=== PATIENT | female | born 1960 | race Caucasian/White ===

== ENCOUNTER → 2016-09-22 13:37 | Emergency (ER) | payer BC, OTHER ==
[~2016-09-22 13:37] MED LIST: Famotidine IV* 10 MG/ML 2 ML (20 mg) IV ONE; methylPREDNISolone 125 MG* 2 ML VIAL IV ONE
--- NOTE | 2016-09-22 18:14 | ED ---
Shiva Macdonald Angela, scribed for Cesar Campbell MD on 09/22/16 at 1601 . Allergic Reaction/Systemic - HPI Summary HPI Summary: 56 y/o female presents to the ED c/o allergic reaction s/p allergy shots today at 8:30 AM. Pt reports that 1 hour after her shots she began to experience an itchy mouth (including tongue and lips), throat, neck, and pruritic rashes on her arms. She notes taking 2 benadryl with no relief, pt states she still feels "prickly" all over. Pt denies SOB or throat tightening. She notes she is allergic to a lot of things, including cats, dogs. - History of Current Complaint Chief Complaint: EDAllergicReaction Time Seen by Provider: 09/22/16 15:40 Hx Obtained From: Patient Onset/Duration: Sudden Onset Timing: Constant Pain Intensity: 0 Location: Diffuse Character: Pruritus Aggravating Factor(s): Nothing Alleviating Factor(s): Nothing Associated Signs And Symptoms: Positive: Rash. Negative: Difficulty Breathing, Nausea, Throat Tightening - Allergies/Home Medications Allergies/Adverse Reactions: Allergies Allergy/AdvReac Type Severity Reaction Status Date / Time No Known Allergies Allergy Verified 09/22/16 13:47 PMH/Surg Hx/FS Hx/Imm Hx - Cancer History Hx Chemotherapy: No Hx Radiation Therapy: Yes - INFINANT ON LOWER LIP Infectious Disease History: No Infectious Disease History: Denies: Traveled Outside the [place] in Last 30 Days Review of Systems Positive: Other - Itchiness in her arms, neck, mouth. . Negative: Fever Positive: Other - NEGATIVE: throat tightening Negative: Shortness Of Breath All Other Systems Reviewed And Are Negative: Yes Physical Exam - Summary Physical Exam Summary: General: well-appearing, no pain distress Skin: warm, color reflects adequate perfusion, dry. Mild diffuse rash on her arms. Head: normal Eyes: EOMI, VIOLETA ENT: normal Neck: supple, nontender Respiratory: CTA, breath sounds present. Airways are open. Cardiovascular: RRR Abdomen: soft, nontender Bowel: present Musculoskeletal: normal, strength/ROM intact Neurological: normal, sensory/motor intact, A&O x3 Psychological: affect/mood appropriate Triage Information Reviewed: Yes Vital Signs On Initial Exam: Initial Vitals Temp Pulse Resp BP Pulse Ox 97.8 F 85 16 119/68 98 09/22/16 13:45 09/22/16 13:45 09/22/16 13:45 09/22/16 13:45 09/22/16 13:45 Vital Signs Reviewed: Yes Diagnostics - Vital Signs Vital Signs Temp Pulse Resp BP Pulse Ox 09/22/16 15:44 99.5 F 93 18 137/80 100 09/22/16 15:31 98.3 F 102 18 127/78 99 09/22/16 13:45 97.8 F 85 16 119/68 98 - Laboratory Lab Statement: Any lab studies that have been ordered have been reviewed, and results considered in the medical decision making process. Allergic Reaction Course/Dx - Course Course Of Treatment: IMPROVED IN ED. NO CRITICAL CARE TIME. DISCHARGE HOME STABLE. - Diagnoses Provider Diagnoses: Allergic reaction Discharge - Discharge Plan Condition: Stable Disposition: HOME Prescriptions: Famotidine TAB* [Pepcid 20 MG TAB*] 20 mg PO BID PRN #8 tab PRN Reason: Allergy Symptoms predniSONE TAB* [Deltasone TAB*] 40 mg PO DAILY PRN #8 tab PRN Reason: Allergy Symptoms Patient Education Materials: General Allergic Reaction (ED) Referrals: Arsenio Ponce MD [Primary Care Provider] - Additional Instructions: FOLLOW UP WITH YOUR DOCTOR. TAKE BENADRYL 50MG EVERY 6 HOURS NEEDED. TAKE PEPCID 20MG TWICE A DAY NEEDED. TAKE THE PREDNISONE DIRECTED NEEDED. RETURN TO THE EMERGENCY DEPARTMENT FOR ANY WORSENING OF YOUR CONDITION OR QUESTIONS OR CONCERNS. The documentation as recorded by the Shiva retana Angela accurately reflects the service I personally performed and the decisions made by me, Cesar Campbell MD.
[2016-09-22 18:45] VITALS: BP 104/68
== END | disposition home or self-care (01) ==
LOC: ED 13:37
DX: T78.40XA Allergy, unspecified, initial encounter (principal); R21 Rash and other nonspecific skin eruption; X58.XXXA Exposure to other specified factors, initial encounter
CPT/HCPCS: 99284; J2930